=== PATIENT | male | born 1970 | race African-American/Black ===

== ENCOUNTER 2017-11-05 20:19 | Emergency (ER) | payer OTHER | END 2017-11-05 22:36 | disposition home or self-care (01) | LOC: D.ER 20:19 | DX: S16.1XXA Strain of muscle, fascia and tendon at neck level, initial encounter (principal); V43.52XA Car driver injured in collision with other type car in traffic accident, initial encounter; Y93.89 Activity, other specified; Y92.410 Unspecified street and highway as the place of occurrence of the external cause; M79.1 Myalgia; I10 Essential (primary) hypertension ==

== ENCOUNTER 2018-11-05 10:21 | Emergency (ER) | payer OTHER ==
[~2018-11-05] VITALS: Ht 154.9 cm; Wt 79.1 kg
[2018-11-05 10:34] VITALS: Ht 154.9 cm; Wt 79.1 kg
[2018-11-05] MEDS ORDERED: ZOCOR10 MG PO (10:37)
[2018-11-05] MEDS ORDERED: NORVASC10 MG PO (10:37)
[2018-11-05] MEDS ORDERED: TORADOL10 MG PO (12:22)
[2018-11-05 12:50] VITALS: BP 150/94
== END 2018-11-05 12:51 | disposition home or self-care (01) ==
LOC: D.ER 10:21
DX: S39.012A Strain of muscle, fascia and tendon of lower back, initial encounter (principal); V49.9XXA Car occupant (driver) (passenger) injured in unspecified traffic accident, initial encounter; Y93.89 Activity, other specified; Y92.410 Unspecified street and highway as the place of occurrence of the external cause; S46.812A Strain of other muscles, fascia and tendons at shoulder and upper arm level, left arm, initial encounter; S66.911A Strain of unspecified muscle, fascia and tendon at wrist and hand level, right hand, initial encounter

== ENCOUNTER 2019-04-09 18:10 | Emergency (ER) | payer OTHER ==
[~2019-04-09] VITALS: Ht 154.9 cm; Wt 78.2 kg
[~2019-04-09 18:10] MED LIST: NORVASC10 MG PO; TORADOL10 MG PO; ZOCOR10 MG PO
[2019-04-09 18:11] VITALS: Ht 154.9 cm; Wt 78.2 kg
[2019-04-09] MEDS ORDERED: TORADOL10 MG PO (19:17)
[2019-04-09] MEDS ORDERED: ROBAXIN500 MG PO (19:17)
[2019-04-09 19:30] VITALS: BP 147/98
== END 2019-04-09 19:30 | disposition home or self-care (01) ==
LOC: D.ER 18:10
DX: S16.1XXA Strain of muscle, fascia and tendon at neck level, initial encounter (principal); X58.XXXA Exposure to other specified factors, initial encounter; Y93.89 Activity, other specified; Y92.89 Other specified places as the place of occurrence of the external cause; S39.012A Strain of muscle, fascia and tendon of lower back, initial encounter; S63.501A Unspecified sprain of right wrist, initial encounter